=== PATIENT | male | born 1980 | race Caucasian/White ===

== ENCOUNTER → 2023-09-23 07:43 | Outpatient (REF) | payer OTHER, SELFPAY | LOC: PAVMRI 07:43 | PROVIDERS: ATTENDING PHYSICIAN Psychiatry & Neurology Neurology | DX: G35 Multiple sclerosis (principal) | CPT/HCPCS: 70553; A9575 ==

== ENCOUNTER → 2023-10-22 07:32 | Outpatient (REF) | payer OTHER, SELFPAY | LOC: PAVMRI 07:32 | PROVIDERS: ATTENDING PHYSICIAN Psychiatry & Neurology Neurology | DX: G35 Multiple sclerosis (principal); H46.9 Unspecified optic neuritis | CPT/HCPCS: 72156; A9575 ==